=== PATIENT | female | born 1935 | race Caucasian/White ===

== ENCOUNTER 2023-02-14 11:23 | Inpatient (IN) | payer MEDICARE ==
[2023-02-14 12:22] LABS: #Basophils 0.1 thou/uL (0.0-0.2); #Eosinphils 0.1 thou/uL (0.0-0.7); #Monocytes 0.5 thou/uL (0.11-0.59); #Neutrophils 6.2 thou/uL (1.40-6.50); %Basophils 0.9 % (0.0-1.0); %Eosinophils 1.7 % (0.0-10.0); %Lymphocytes 12.3 % (21.0-51.0); %Monocytes 5.8 % (0.0-10.0); Mean Corpuscular HGB CONC 32.4 g/dL (32.0-36.0); Mean Corpuscular Hemoglobin 27.8 pg (27.0-31.0); Mean Corpuscular Volume 86.1 fl (78.0-98.0); Mean Platelet Volume 9.8 fL (7.4-10.4); Platelet Count 275 10x3/uL (130-400); RBC Distribution Width 14.6 % (11.5-14.5); Red Blood Cell (RBC) Count 3.95 mill/uL (4.20-5.40); White Blood Cell (WBC) Count 7.8 10x3/uL (4.8-10.8)
[2023-02-14] MEDS ORDERED: Iopamidol-370 76% 500 ML MDV (1 ML CHARGE) ONE (12:24)
[2023-02-14 12:52] LABS: ALT (SGPT) 14 U/L (8-55); AST (SGOT) 22 U/L (5-34); Albumin 4.4 g/dL (3.4-4.8); Alkaline Phosphatase 100 U/L (40-110); Anion Gap 12 mmol/L (10-20); BUN (Urea Nitrogen) 16 mg/dL (9.8-20.1); Bilirubin, Total 0.5 mg/dL (0.2-1.2); Calc. Creatinine Clearance 0 mL/min (70-130); Calcium 9.5 mg/dL (7.8-10.44); Carbon Dioxide 22 mmol/L (23-31); Chloride 103 mmol/L (98-107); Estimated GFR 50; Globulin 2.4 g/dL (2.4-3.5); Glucose 97 mg/dL (83-110); Potassium 3.4 mmol/L (3.5-5.1); Protein, Total 6.8 g/dL (5.8-8.1); Sodium 134 mmol/L (136-145)
[2023-02-14 13:42] LABS: Bacteria/HPF None Seen HPF (None Seen); Bilirubin Negative (Negative); Blood, Urine Trace (Negative); CAUTI Indications for Culture Dysuria,urgency,freq; Clarity Clear (Clear); Glucose, Urine (Dipstick) Normal (Negative); Ketone, Urine Negative (Negative); Leukocyte Negative Leu/uL (Negative); Nitrite Negative (Negative); Protein, Urine (Dipstick) Negative (Neg-Trace); RBC/HPF 0-3 HPF (0-3); Urobilinogen Normal mg/dL (Less than 2); WBC/HPF 0-3 HPF (0-3); pH, Urine 5.5 (5.0-9.0)
[2023-02-14 13:48] LABS: Urine Culture Reflex No No
[2023-02-14] MEDS ORDERED: Senokot S 8.6-50 MG TAB PO PRN (15:24)
[2023-02-14] MEDS ORDERED: Calcium Carbonate 500 MG ChewTAB PO PRN (15:24)
[2023-02-14] MEDS ORDERED: Pantoprazole 40 MG VIAL IVP SCH (15:30)
[2023-02-14 16:46] VITALS: BMI 25.0
[2023-02-14] MEDS ORDERED: hydrALAZINE 25 MG TAB PO SCH (17:15)
[2023-02-14] MEDS: Sodium Chloride 0.9% 1,000 ML IV SCH (17:43)
[2023-02-14] MEDS ORDERED: Potassium Chloride 20 MEQ TAB PO SCH (18:30)
[2023-02-14 20:08] LABS: Hematocrit 37.1 % (36.0-47.0); Hemoglobin 11.9 g/dL (12.0-16.0); Platelet Count 302 10x3/uL (130-400)
[2023-02-14] MEDS: Atorvastatin Calcium 40 MG TAB PO SCH (21:37)
[2023-02-14] MEDS: Sertraline 100 MG TAB PO SCH (21:37)
[2023-02-14] MEDS: ALPRAZolam 0.5 MG TAB PO PRN (21:38)
[2023-02-14] MEDS: Ondansetron PF 4 MG/2 ML Vial IVP PRN (22:13)
[2023-02-14] MEDS ORDERED: hydrALAZINE 20 MG/ML VIAL SLOW IVP SCH (22:15)
[2023-02-14] MEDS ORDERED: dilTIAZem CD 240 MG CAP PO SCH (22:30)
[2023-02-14] MEDS ORDERED: Acetaminophen 325 MG TAB PO SCH (22:45)
[2023-02-15 03:54] LABS: #Eosinphils 0.1 thou/uL (0.0-0.7); #Monocytes 0.4 thou/uL (0.11-0.59); #Neutrophils 4.5 thou/uL (1.40-6.50); %Basophils 0.7 % (0.0-1.0); %Lymphocytes 13.3 % (21.0-51.0); %Monocytes 6.7 % (0.0-10.0); %Neutrophils 78.1 % (42.0-75.0); Hematocrit 33.9 % (36.0-47.0); Hemoglobin 10.5 g/dL (12.0-16.0); Mean Corpuscular Volume 87.1 fl (78.0-98.0); Mean Platelet Volume 10.3 fL (7.4-10.4); Platelet Count 250 10x3/uL (130-400); RBC Distribution Width 14.7 % (11.5-14.5); Red Blood Cell (RBC) Count 3.89 mill/uL (4.20-5.40); White Blood Cell (WBC) Count 5.8 10x3/uL (4.8-10.8)
[2023-02-15 04:19] LABS: ALT (SGPT) 10 U/L (8-55); AST (SGOT) 17 U/L (5-34); Albumin 3.9 g/dL (3.4-4.8); Alkaline Phosphatase 83 U/L (40-110); Anion Gap 10 mmol/L (10-20); BUN (Urea Nitrogen) 11 mg/dL (9.8-20.1); Bilirubin, Total 0.4 mg/dL (0.2-1.2); Calc. Creatinine Clearance 49 mL/min (70-130); Carbon Dioxide 25 mmol/L (23-31); Chloride 107 mmol/L (98-107); Estimated GFR 63; Globulin 1.9 g/dL (2.4-3.5); Glucose 99 mg/dL (83-110); Potassium 3.4 mmol/L (3.5-5.1); Protein, Total 5.8 g/dL (5.8-8.1); Sodium 139 mmol/L (136-145)
[2023-02-15] MEDS: Levothyroxine Sodium 100 MCG TAB PO SCH (05:54)
[2023-02-15] MEDS: Acetaminophen 325 MG TAB PO PRN ×2 (05:54→11:54)
[2023-02-15] MEDS: Sodium Chloride 0.9% 1,000 ML IV SCH (05:55)
[2023-02-15] MEDS ORDERED: NEBIVOLOL HCL 20 MG PO SCH (09:00)
[2023-02-15] MEDS ORDERED: Non-Formulary Item 1 EACH (Losartan Potassium [Losartan Potassium] 100 MG Tablet) PO SCH (09:00)
[2023-02-15] MEDS ORDERED: Sertraline 100 MG TAB PO SCH (09:00)
[2023-02-15] MEDS: Losartan 25 MG TAB PO SCH (09:15)
[2023-02-15] MEDS: Nebivolol HCl 5 MG TAB PO SCH (09:15)
[2023-02-15] MEDS: Sertraline 100 MG TAB PO SCH ×2 (09:16→20:18)
[2023-02-15] MEDS: Pantoprazole 40 MG VIAL IVP SCH (09:16)
[2023-02-15] MEDS: Potassium Chloride 20 MEQ TAB PO SCH ×2 (09:16→20:19)
[2023-02-15] MEDS: ALPRAZolam 0.5 MG TAB PO PRN ×2 (11:55→21:41)
[2023-02-15] MEDS ORDERED: Morphine 2 MG/ML VIAL SLOW IVP PRN (14:34)
[2023-02-15] MEDS: Ondansetron PF 4 MG/2 ML Vial IVP PRN (15:17)
[2023-02-15] MEDS ORDERED: Labetalol HCl 100 MG/20 ML VIAL ONE (16:24)
[2023-02-15] MEDS ORDERED: Labetalol HCl 100 MG/20 ML VIAL SLOW IVP SCH (16:30)
[2023-02-15] MEDS ORDERED: Promethazine HCl 12.5 MG in Sodium Chloride 0.9% 50 ML IVPB SCH (16:30)
[2023-02-15] MEDS: hydrALAZINE 20 MG/ML VIAL SLOW IVP PRN (17:45)
[2023-02-15] MEDS ORDERED: GoLYTELY 4,000 ml Bottle PO SCH (19:00)
[2023-02-15] MEDS: Atorvastatin Calcium 40 MG TAB PO SCH (20:18)
[2023-02-15] MEDS: dilTIAZem CD 240 MG CAP PO SCH (20:25)
[2023-02-16 04:02] LABS: Hematocrit 33.1 % (36.0-47.0); Hemoglobin 10.5 g/dL (12.0-16.0)
[2023-02-16 04:21] LABS: Anion Gap 13 mmol/L (10-20); BUN (Urea Nitrogen) 7 mg/dL (9.8-20.1); Calc. Creatinine Clearance 46 mL/min (70-130); Calcium 9.4 mg/dL (7.8-10.44); Carbon Dioxide 22 mmol/L (23-31); Chloride 106 mmol/L (98-107); Estimated GFR 58; Glucose 181 mg/dL (83-110); Potassium 2.8 mmol/L (3.5-5.1); Sodium 138 mmol/L (136-145)
[2023-02-16] MEDS: Levothyroxine Sodium 100 MCG TAB PO SCH (06:37)
[2023-02-16] MEDS: Potassium Chloride 20 MEQ in Premix Bag 1 BAG IVPB SCH ×2 (06:38→10:01)
[2023-02-16 09:05] LABS: Magnesium 1.4 mg/dL (1.6-2.6)
[2023-02-16] MEDS: hydrALAZINE 20 MG/ML VIAL SLOW IVP PRN ×2 (10:02→15:27)
[2023-02-16] MEDS: Pantoprazole 40 MG VIAL IVP SCH (10:02)
[2023-02-16] MEDS ORDERED: Magnesium 2 GM/50 ML(in water) 2 GM in Premix Bag 1 BAG IVPB SCH (10:30)
[2023-02-16] MEDS ORDERED: fentaNYL 50 mcg/mL 1 mL Vial ONE ×2 (11:04→14:49)
[2023-02-16] MEDS ORDERED: Ondansetron PF 4 MG/2 ML Vial ONE ×2 (12:27→13:38)
[2023-02-16] MEDS: Ondansetron PF 4 MG/2 ML Vial IVP PRN ×2 (12:30→17:10)
[2023-02-16] MEDS ORDERED: PROPOFOL 200 MG/20 ML VIAL ONE (13:38)
[2023-02-16] MEDS ORDERED: Lidocaine 1% PF 5 ML VIAL ONE (13:38)
[2023-02-16] MEDS ORDERED: hydrALAZINE 20 MG/ML VIAL ONE (15:23)
[2023-02-16] MEDS: Losartan 25 MG TAB PO SCH (16:49)
[2023-02-16] MEDS: Nebivolol HCl 5 MG TAB PO SCH (16:49)
[2023-02-16] MEDS: Sertraline 100 MG TAB PO SCH ×2 (16:49→20:34)
[2023-02-16] MEDS: Acetaminophen 325 MG TAB PO PRN (17:02)
[2023-02-16 18:05] LABS: Magnesium 1.3 mg/dL (1.6-2.6); Potassium 3.8 mmol/L (3.5-5.1)
[2023-02-16] MEDS: dilTIAZem CD 240 MG CAP PO SCH (20:33)
[2023-02-16] MEDS: Atorvastatin Calcium 40 MG TAB PO SCH (20:35)
[2023-02-16] MEDS: ALPRAZolam 0.5 MG TAB PO PRN (20:36)
[2023-02-17 04:52] LABS: Hemoglobin 10.9 g/dL (12.0-16.0)
[2023-02-17 05:17] LABS: Anion Gap 12 mmol/L (10-20); BUN (Urea Nitrogen) 6 mg/dL (9.8-20.1); Calc. Creatinine Clearance 51 mL/min (70-130); Calcium 9.6 mg/dL (7.8-10.44); Carbon Dioxide 24 mmol/L (23-31); Chloride 104 mmol/L (98-107); Estimated GFR 65; Glucose 115 mg/dL (83-110); Potassium 3.5 mmol/L (3.5-5.1); Sodium 136 mmol/L (136-145)
[2023-02-17] MEDS: Levothyroxine Sodium 100 MCG TAB PO SCH (05:49)
[2023-02-17] MEDS: Acetaminophen 325 MG TAB PO PRN (09:14)
[2023-02-17] MEDS: Nebivolol HCl 5 MG TAB PO SCH (09:15)
[2023-02-17] MEDS: Losartan 25 MG TAB PO SCH (09:17)
[2023-02-17] MEDS: Sertraline 100 MG TAB PO SCH (09:18)
[2023-02-17] MEDS: Pantoprazole 40 MG VIAL IVP SCH (09:18)
[2023-02-17] MEDS ORDERED: Potassium Chloride 20 MEQ TAB PO SCH (12:15)
[2023-02-17] MEDS ORDERED: Magnesium 2 GM/50 ML(in water) 2 GM in Premix Bag 1 BAG IVPB SCH (12:15)
[2023-02-17 16:54] VITALS: BP 136/85; TEMP 97.7
== END 2023-02-17 17:12 | disposition home or self-care (01) | DRG 378 ==
LOC: SUATTDRO 11:23 → ERS 11:23 → 2NO 15:24 → OBSVTOIN 15:24
PROVIDERS: ADMIT Internal Medicine; ATTEND Internal Medicine
PROC: 0DB98ZX Excision of Duodenum, Via Natural or Artificial Opening Endoscopic, Diagnostic (ICD-10-PCS; principal; 2023-02-16)
PROC: 0DB78ZX Excision of Stomach, Pylorus, Via Natural or Artificial Opening Endoscopic, Diagnostic (ICD-10-PCS; 2023-02-16)
PROC: 0DBK8ZZ Excision of Ascending Colon, Via Natural or Artificial Opening Endoscopic (ICD-10-PCS; 2023-02-16)
PROC: 0DBL8ZZ Excision of Transverse Colon, Via Natural or Artificial Opening Endoscopic (ICD-10-PCS; 2023-02-16)
PROC: 0DBG8ZX Excision of Left Large Intestine, Via Natural or Artificial Opening Endoscopic, Diagnostic (ICD-10-PCS; 2023-02-16)
DX: K57.33 Diverticulitis of large intestine without perforation or abscess with bleeding (principal); E87.1 Hypo-osmolality and hyponatremia; J90 Pleural effusion, not elsewhere classified; F03.90 Unspecified dementia, unspecified severity, without behavioral disturbance, psychotic disturbance, mood disturbance, and anxiety; F39 Unspecified mood [affective] disorder; E78.5 Hyperlipidemia, unspecified; I48.91 Unspecified atrial fibrillation; E87.6 Hypokalemia; K80.20 Calculus of gallbladder without cholecystitis without obstruction; D64.9 Anemia, unspecified; E03.9 Hypothyroidism, unspecified; Z66 Do not resuscitate; I50.9 Heart failure, unspecified; I11.0 Hypertensive heart disease with heart failure; G43.909 Migraine, unspecified, not intractable, without status migrainosus; Z96.653 Presence of artificial knee joint, bilateral; K29.70 Gastritis, unspecified, without bleeding; K44.9 Diaphragmatic hernia without obstruction or gangrene; Z95.0 Presence of cardiac pacemaker; Z79.01 Long term (current) use of anticoagulants; Z98.890 Other specified postprocedural states; Z90.710 Acquired absence of both cervix and uterus
CPT/HCPCS: 36415; 71045; 74177; 80048; 80053; 81001; 82274; 83735; 85014; 85018; 85025; 86850; 86900; 86901; 88305; C9113; J0360; J2272; J2405; J2550; J2704; J3010; J3475; J3480; J7050; Q9967

== ENCOUNTER 2023-02-22 08:45 | Outpatient (CLI) | payer MEDICARE | END 2023-02-22 08:46 | disposition home or self-care (01) | LOC: PET 08:45 | PROVIDERS: ATTEND Student in an Organized Health Care Education/Training Program | DX: E27.8 Other specified disorders of adrenal gland (principal); K76.9 Liver disease, unspecified; D73.89 Other diseases of spleen; J90 Pleural effusion, not elsewhere classified | CPT/HCPCS: 78815; A9552 ==

== ENCOUNTER 2023-06-27 12:35 | Outpatient (CLI) | payer MEDICARE ==
[2023-06-27] MEDS ORDERED: Iopamidol 370 76% 100 ML VIAL ONE (13:37)
== END 2023-06-27 12:36 | disposition home or self-care (01) ==
LOC: CT 12:35
PROVIDERS: ATTEND Student in an Organized Health Care Education/Training Program
DX: R10.13 Epigastric pain (principal); R06.02 Shortness of breath; R53.83 Other fatigue; R11.0 Nausea; R63.4 Abnormal weight loss; D64.9 Anemia, unspecified; D73.89 Other diseases of spleen; I51.7 Cardiomegaly; R91.1 Solitary pulmonary nodule; K80.20 Calculus of gallbladder without cholecystitis without obstruction
CPT/HCPCS: 71260; 74177; Q9967

== ENCOUNTER 2023-07-26 12:52 | Outpatient (CLI) | payer MEDICARE | END 2023-07-26 12:53 | disposition home or self-care (01) | LOC: CT 12:52 | PROVIDERS: ATTEND Student in an Organized Health Care Education/Training Program | DX: R41.3 Other amnesia (principal); R29.6 Repeated falls; I67.89 Other cerebrovascular disease; G31.9 Degenerative disease of nervous system, unspecified | CPT/HCPCS: 70450 ==

== ENCOUNTER 2023-12-19 08:54 | Outpatient (CLI) | payer MEDICARE | END 2023-12-19 08:55 | disposition home or self-care (01) | LOC: NM 08:54 | PROVIDERS: ATTEND Psychiatry & Neurology Neurology | DX: G25.0 Essential tremor (principal); R41.3 Other amnesia | CPT/HCPCS: 78803; A9584 ×2 ==

== ENCOUNTER 2024-01-28 05:58 | Day surgery (SDC) | payer MEDICARE ==
[2024-01-23 11:28] VITALS: BMI 20.6
[2024-01-23 13:29] LABS: Hematocrit 37.8 % (34.9-44.5); Mean Corpuscular HGB CONC 31.7 g/dL (32.0-36.0); Mean Corpuscular Hemoglobin 28.4 pg (27.0-33.0); Mean Corpuscular Volume 89.4 fL (81.6-98.3); Mean Platelet Volume 10.2 fL (7.4-10.4); Platelet Count 279 10x3/uL (150-450); RBC Distribution Width 13.2 % (11.5-14.5); Red Blood Cell (RBC) Count 4.23 10x6/uL (3.90-5.03); White Blood Cell (WBC) Count 7.4 10x3/uL (3.5-10.5)
[2024-01-23 14:13] LABS: INR-International Normal Ratio 1.1; PTT 29.6 sec (22.0-33.0); Prothrombin Time 12.2 sec (9.5-12.1)
[2024-01-23 14:23] LABS: Anion Gap 15 mmol/L (10-20); BUN (Urea Nitrogen) 16 mg/dL (9.8-20.1); Calc. Creatinine Clearance 36 mL/min (70-130); Calcium 9.8 mg/dL (7.8-10.44); Carbon Dioxide 24 mmol/L (23-31); Chloride 103 mmol/L (98-107); Estimated GFR 53; Glucose 127 mg/dL (83-110); Potassium 4.2 mmol/L (3.5-5.1); Sodium 138 mmol/L (136-145)
[2024-01-28] MEDS ORDERED: Lidocaine 1% PF 5 ML VIAL ONE (07:42)
[2024-01-28] MEDS ORDERED: PROPOFOL 200 MG/20 ML VIAL ONE (07:42)
== END 2024-01-28 08:53 | disposition home or self-care (01) ==
LOC: SDC 05:58
PROVIDERS: ATTEND Internal Medicine Cardiovascular Disease
PROC: B246ZZ4 Ultrasonography of Right and Left Heart, Transesophageal (ICD-10-PCS; principal; 2024-01-28)
DX: I48.0 Paroxysmal atrial fibrillation (principal)
CPT/HCPCS: 80048; 85027; 85610; 85730; 93312; J2704

== ENCOUNTER 2024-02-19 14:40 | Outpatient (CLI) | payer MEDICARE ==
[2024-02-19 15:20] LABS: Hemoglobin 12.2 g/dL (12.0-16.0); Red Blood Cell (RBC) Count 4.23 mill/uL (4.20-5.40)
[2024-02-19 15:21] LABS: #Basophils 0.05 10x3/uL (0.0-0.2); %Basophils 0.7 % (0.0-1.0); %Eosinophils 2.4 % (0.0-10.0); %Lymphocytes 13.1 % (21.0-51.0); %Monocytes 5.6 % (0.0-10.0); %Neutrophils 77.8 % (42.0-75.0); Hematocrit 37.5 % (36.0-47.0); Mean Corpuscular HGB CONC 32.5 g/dL (32.0-36.0); Mean Corpuscular Hemoglobin 28.8 pg (27.0-31.0); Mean Corpuscular Volume 88.7 fL (78.0-98.0); Mean Platelet Volume 10.1 fL (7.4-10.4); Platelet Count 238 10x3/uL (130-400); RBC Distribution Width 13.6 % (11.5-14.5)
[2024-02-19 15:34] LABS: INR-International Normal Ratio 1.1; PTT 33.7 sec (22.9-36.1); Prothrombin Time 14.6 sec (12.0-14.7)
[2024-02-19 15:45] LABS: Anion Gap 16 mmol/L (10-20); BUN (Urea Nitrogen) 14 mg/dL (9.8-20.1); Calc. Creatinine Clearance 0 mL/min (70-130); Calcium 9.7 mg/dL (7.8-10.44); Carbon Dioxide 22 mmol/L (23-31); Chloride 103 mmol/L (98-107); Estimated GFR 58; Glucose 89 mg/dL (83-110); Potassium 3.9 mmol/L (3.5-5.1); Sodium 137 mmol/L (136-145)
== END 2024-02-19 14:41 | disposition home or self-care (01) ==
LOC: LABBT 14:40
PROVIDERS: ATTEND Internal Medicine Cardiovascular Disease
DX: Z01.812 Encounter for preprocedural laboratory examination (principal); I48.19 Other persistent atrial fibrillation
CPT/HCPCS: 80048; 85025; 85610; 85730

== ENCOUNTER 2024-07-09 10:15 | Outpatient (CLI) | payer MEDICARE | END 2024-07-09 10:16 | disposition home or self-care (01) | LOC: PET 10:15 | PROVIDERS: ATTEND Psychiatry & Neurology Neurology | DX: R41.3 Other amnesia (principal) | CPT/HCPCS: 78803; A9552 ==

== ENCOUNTER 2025-01-13 08:36 | Inpatient (IN) | payer MEDICARE ==
[2025-01-13] MEDS ORDERED: Furosemide 40 MG (4 mL) VIAL ONE (09:02)
[2025-01-13 09:08] LABS: #Basophils 0.03 10x3/uL (0.0-0.2); #Eosinophils 0.06 10x3/uL (0.0-0.7); #Monocytes 0.48 10x3/uL (0.11-0.59); #Neutrophils 6.24 10x3/uL (1.40-6.50); %Basophils 0.4 % (0.0-1.0); %Eosinophils 0.8 % (0.0-10.0); %Lymphocytes 9.3 % (21.0-51.0); %Monocytes 6.4 % (0.0-10.0); %Neutrophils 82.6 % (42.0-75.0); Hematocrit 35.0 % (36.0-47.0); Hemoglobin 11.2 g/dL (12.0-16.0); Mean Corpuscular Hemoglobin 28.8 pg (27.0-31.0); Mean Corpuscular Volume 90.0 fL (78.0-98.0); Platelet Count 253 10x3/uL (130-400); Red Blood Cell (RBC) Count 3.89 mill/uL (4.20-5.40); White Blood Cell (WBC) Count 7.55 10x3/uL (4.8-10.8)
[2025-01-13 09:29] LABS: Troponin I 0.022 ng/mL (< 0.028)
[2025-01-13 09:30] LABS: INR-International Normal Ratio 1.2; PTT 30.9 sec (22.9-36.1); Prothrombin Time 15.3 sec (12.0-14.7)
[2025-01-13 10:12] LABS: ALT (SGPT) 34 U/L (Less than 34); AST (SGOT) 33 U/L (11-34); Albumin 4.0 g/dL (3.1-4.5); Alkaline Phosphatase 94 U/L (40-110); Anion Gap 15 mmol/L (10-20); BUN (Urea Nitrogen) 18 mg/dL (9.8-20.1); Bilirubin, Total 0.7 mg/dL (0.3-1.2); Calc. Creatinine Clearance 0 mL/min (70-130); Calcium 9.2 mg/dL (7.8-10.44); Carbon Dioxide 25 mmol/L (23-31); Chloride 101 mmol/L (98-107); Globulin 2.8 g/dL (2.4-3.5); Glucose 97 mg/dL (83-110); Magnesium 1.8 mg/dL (1.6-2.6); Potassium 4.1 mmol/L (3.5-5.1); Sodium 137 mmol/L (136-145)
[2025-01-13] MEDS ORDERED: Iopamidol-370 76% 500 ML MDV (1 ML CHARGE) ONE (11:30)
[2025-01-13] MEDS ORDERED: Ondansetron PF 4 MG/2 ML Vial IVP PRN (11:39)
[2025-01-13] MEDS ORDERED: Melatonin 3 MG TAB PO PRN (11:39)
[2025-01-13] MEDS ORDERED: Acetaminophen 325 MG TAB PO PRN (11:39)
[2025-01-13 12:47] LABS: Troponin I 0.018 ng/mL (< 0.028)
[2025-01-13 14:41] VITALS: BMI 20.2
[2025-01-13] MEDS: Furosemide 40 MG (4 mL) VIAL SLOW IVP SCH (15:14)
[2025-01-13 16:15] LABS: Troponin I 0.019 ng/mL (< 0.028)
[2025-01-13] MEDS: Famotidine 20 MG TAB PO SCH (20:38)
[2025-01-14 04:53] LABS: #Basophils Less than 0.03 10x3/uL (0.0-0.2); #Eosinophils Less than 0.03 10x3/uL (0.0-0.7); #Monocytes 0.20 10x3/uL (0.11-0.59); #Neutrophils 5.92 10x3/uL (1.40-6.50); %Basophils 0.0 % (0.0-1.0); %Eosinophils 0.0 % (0.0-10.0); %Lymphocytes 6.4 % (21.0-51.0); %Monocytes 3.0 % (0.0-10.0); %Neutrophils 90.1 % (42.0-75.0); Hematocrit 32.0 % (36.0-47.0); Hemoglobin 10.4 g/dL (12.0-16.0); Mean Corpuscular Hemoglobin 28.9 pg (27.0-31.0); Mean Corpuscular Volume 88.9 fL (78.0-98.0); Platelet Count 233 10x3/uL (130-400); Red Blood Cell (RBC) Count 3.60 mill/uL (4.20-5.40); White Blood Cell (WBC) Count 6.57 10x3/uL (4.8-10.8)
[2025-01-14 04:55] LABS: Anion Gap 13 mmol/L (10-20); BUN (Urea Nitrogen) 22 mg/dL (9.8-20.1); Calc. Creatinine Clearance 31 mL/min (70-130); Calcium 8.9 mg/dL (7.8-10.44); Carbon Dioxide 29 mmol/L (23-31); Chloride 101 mmol/L (98-107); Glucose 132 mg/dL (83-110); Magnesium 1.6 mg/dL (1.6-2.6); Potassium 3.8 mmol/L (3.5-5.1); Sodium 139 mmol/L (136-145)
[2025-01-14] MEDS ORDERED: ALPRAZolam 0.5 MG TAB PO PRN (08:06)
[2025-01-14] MEDS ORDERED: hydrALAZINE 10 MG TAB PO SCH (09:00)
[2025-01-14] MEDS: Memantine 5 MG TAB PO SCH (09:50)
[2025-01-14] MEDS: Enoxaparin 40 MG (0.4 mL) SYRINGE SC SCH (09:50)
[2025-01-14] MEDS: Losartan 25 MG TAB PO SCH (09:50)
[2025-01-14] MEDS: Budesonide DR 3 MG CAP PO SCH (21:24)
[2025-01-14] MEDS: ALPRAZolam 0.25 MG TAB PO PRN (21:51)
[2025-01-15 08:31] VITALS: TEMP 98.4
[2025-01-15 10:39] VITALS: BP 149/72
[2025-01-15] MEDS ORDERED: Gabapentin 100 MG CAP PO SCH (21:00)
[2025-01-15] MEDS ORDERED: Famotidine 20 MG TAB PO SCH (21:00)
[2025-01-16] MEDS ORDERED: Enoxaparin 30 MG (0.3 mL) SYRINGE SC SCH (09:00)
== END 2025-01-15 12:12 | DRG 291 ==
LOC: ERS 08:36 → 2NO 11:39
PROVIDERS: ADMIT Family Medicine; ATTEND Internal Medicine
DX: I11.0 Hypertensive heart disease with heart failure (principal); I50.33 Acute on chronic diastolic (congestive) heart failure; J96.01 Acute respiratory failure with hypoxia; F03.93 Unspecified dementia, unspecified severity, with mood disturbance; I48.0 Paroxysmal atrial fibrillation; E78.5 Hyperlipidemia, unspecified; E03.9 Hypothyroidism, unspecified; Z79.890 Hormone replacement therapy; K52.832 Lymphocytic colitis
CPT/HCPCS: 36415; 71045; 71275; 80048; 80053; 83605; 83735; 83880; 84300; 84443; 84484; 85025; 85610; 85730; 87040; 87086; 93005; 93306; 93798; 94640; 96374; 96375; J1650; J1940; J2919; J7620; Q9967